=== PATIENT | male | born 1990 | race Caucasian/White ===

== ENCOUNTER → 2019-05-09 | Outpatient (CLI) | payer OTHER ==
--- NOTE | 2019-05-10 09:08 | US ---
EXAM DESCRIPTION: Soft Tissue,Abdomen: ULTRASOUND. CLINICAL HISTORY: R10.33. Patient feels lump and pain in the region of the umbilicus. COMPARISON: None. TECHNIQUE: Transabdominal scanning: davis-scale and Doppler modes. FINDINGS: Scanning of the region around the umbilicus. No defect in the abdominal wall. No fatty hernia sac or fluid collection. No bowel peristalsis in the hernia. IMPRESSION: No umbilical or periumbilical hernia or defect. Electronically signed by: Jose Melton MD 05/10/2019 9:06 AM CDT
== END ==
LOC: US 05-04 13:41
PROVIDERS: ATTEND Nurse Practitioner Family
DX: R10.33 Periumbilical pain (principal)